=== PATIENT | female | born 1960 | race Caucasian/White ===

== ENCOUNTER 2018-06-21 10:26 | Outpatient (CLI) | payer MEDICARE, OTHER ==
[~2018-06-21 10:26] MED LIST: CETI-1 PO; CHOL2000 PO; CITA-278 PO; CYAN-19 PO; HYDR200T84 PO; LAMO100T2 PO; LURA40TA3 PO; OXYGEN; PER10325T PO; PREG75CA30 PO; SALS750T20 PO; TRAZ-91 PO; VAL5T PO; ZOLE5INF7 IV; calcium PO
[2018-06-21 11:12] LABS: BASOPHILS % (AUTO) 0.4 % (0-1); EOSINOPHILS % (AUTO) 1.2 % (0-6); HEMATOCRIT 44.3 % (35.0-45.0); HEMOGLOBIN 14.8 g/dl (12.0-16.0); LYMPHOCYTES # (AUTO) 1.3 X10'3 (1.1-4.8); LYMPHOCYTES % (AUTO) 33.1 % (21-51); MEAN CORPUSCULAR HEMOGLOBIN 30.1 PG (27.0-31.0); MEAN CORPUSCULAR HGB CONC 33.4 g/dL (33.0-36.5); MEAN PLATELET VOLUME 8.3 FL (7.4-10.4); MONOCYTES # (AUTO) 0.4 X10'3 (0-0.9); MONOCYTES % (AUTO) 10.8 % (2-12); NEUTROPHILS # (AUTO) 2.1 X10'3 (1.8-7.7); NEUTROPHILS % (AUTO) 54.5 % (42-75); PLATELET COUNT 132 X10'3 (140-440); RED BLOOD COUNT 4.92 X10'6 (4.20-5.60); RED CELL DISTRIBUTION WIDTH 13.5 % (11.5-14.5); WHITE BLOOD COUNT 3.9 X10'3 (4.5-11.0)
[2018-06-21 11:22] LABS: PARTIAL THROMBOPLASTIN TIME 28 SECONDS (22-32); PROTHROMBIN TIME 9.7 SECONDS (9.0-12.0)
[2018-06-21 11:24] LABS: ALANINE AMINOTRANSFERASE 21 U/L (12-78); ALBUMIN 3.6 G/DL (3.4-5.0); ALKALINE PHOSPHATASE 81 IU/L (46-116); ANION GAP 8 (8-16); ASPARTATE AMINO TRANSFERASE 10 U/L (10-37); BILIRUBIN,TOTAL 0.5 MG/DL (0.1-1.0); BLOOD UREA NITROGEN 14 MG/DL (7-18); CHLORIDE 102 MMOL/L (99-107); CREATININE 1.17 MG/DL (0.40-0.90); GLUCOSE 96 MG/DL (70-104); POTASSIUM 4.2 MMOL/L (3.5-5.1); SODIUM 140 MMOL/L (135-145); TOTAL CARBON DIOXIDE 30.3 MMOL/L (24-32); TOTAL PROTEIN 7.2 G/DL (6.4-8.2); eGFR 48 ML/MIN
== END 2018-06-21 23:59 | disposition home or self-care (01) ==
LOC: LAB 10:26
PROVIDERS: ATTEND Otolaryngology
DX: D69.1 Qualitative platelet defects (principal); J44.9 Chronic obstructive pulmonary disease, unspecified; I50.9 Heart failure, unspecified; N18.2 Chronic kidney disease, stage 2 (mild); Z79.899 Other long term (current) drug therapy; Z87.891 Personal history of nicotine dependence; Z88.2 Allergy status to sulfonamides
CPT/HCPCS: 36415; 80053; 85025; 85576; 85610; 85730

== ENCOUNTER 2019-03-23 15:31 | Emergency (ER) | payer MEDICARE, OTHER ==
[~2019-03-23] VITALS: Ht 167.6 cm; Wt 126.8 kg
[~2019-03-23 15:31] MED LIST changes: -CITA-278 PO; +CITA20TA28 PO; -CYAN-19 PO; +CYAN100019 PO
[2019-03-23 16:30] VITALS: BP 128/78
--- NOTE | 2019-03-23 16:36 | NUR ---
Patient to xray
--- NOTE | 2019-03-23 16:43 | NUR ---
assumed care, no report, returned from lunch
--- NOTE | 2019-03-23 17:58 | NUR ---
Patient refused spinal xray stating that she just wants to go home.
== END 2019-03-23 17:59 | disposition home or self-care (01) ==
LOC: ER 15:31
DX: M25.552 Pain in left hip (principal); M54.5 Low back pain; Z88.2 Allergy status to sulfonamides; Z88.8 Allergy status to other drugs, medicaments and biological substances; Z88.6 Allergy status to analgesic agent; Z79.2 Long term (current) use of antibiotics; Z79.899 Other long term (current) drug therapy; W18.39XA Other fall on same level, initial encounter; Y93.01 Activity, walking, marching and hiking; Y92.89 Other specified places as the place of occurrence of the external cause; Y99.8 Other external cause status
CPT/HCPCS: 73502; 99284

== ENCOUNTER 2019-03-27 14:37 | Emergency (ER) | payer MEDICARE, OTHER ==
[~2019-03-27] VITALS: Ht 167.6 cm; Wt 126.0 kg
[2019-03-27 14:43] VITALS: BP 107/77
[2019-03-27 16:58] LABS: D-DIMER 0.73 MG/L FEU (0-0.50)
[2019-03-27] MEDS ORDERED: LIDOcaine 5% patch TP ONE (17:00)
[2019-03-27] MEDS ORDERED: cyclobenzaprine 10mg tablet PO ONE (17:00)
[2019-03-27] MEDS ORDERED: oxyCODONE/APAP 10/325mg tablet PO ONE (17:00)
== END 2019-03-27 18:07 | disposition home or self-care (01) ==
LOC: ER 14:38
DX: S73.102A Unspecified sprain of left hip, initial encounter (principal); S33.5XXA Sprain of ligaments of lumbar spine, initial encounter; M54.32 Sciatica, left side; J44.9 Chronic obstructive pulmonary disease, unspecified; G89.29 Other chronic pain; M79.7 Fibromyalgia; M19.90 Unspecified osteoarthritis, unspecified site; F31.9 Bipolar disorder, unspecified; Z90.49 Acquired absence of other specified parts of digestive tract; Z98.890 Other specified postprocedural states; Z95.0 Presence of cardiac pacemaker; Z79.899 Other long term (current) drug therapy; Z88.2 Allergy status to sulfonamides; Z88.8 Allergy status to other drugs, medicaments and biological substances; Z91.013 Allergy to seafood; W01.0XXA Fall on same level from slipping, tripping and stumbling without subsequent striking against object, initial encounter; Y93.01 Activity, walking, marching and hiking; Y92.098 Other place in other non-institutional residence as the place of occurrence of the external cause; Y99.8 Other external cause status
CPT/HCPCS: 36415; 72100; 85379; 93971; 99284